=== PATIENT | female | born 1945 | race African-American/Black ===

== ENCOUNTER 2018-12-02 14:26 | Emergency (ER) | payer MEDICARE, OTHER ==
--- NOTE | 2018-12-02 16:30 | ED ---
General Adult HPI - General Source: patient, RN notes reviewed, old records reviewed Mode of arrival: EMS Limitations: no limitations <Lg Denis - Last Filed: 12/02/18 16:42> <Heidi Nunez - Last Filed: 12/02/18 20:06> - General Chief complaint: Psychiatric Symptoms Stated complaint: MENTAL HEALTH Time Seen by Provider: 12/02/18 14:28 - History of Present Illness Initial comments: 73-year-old female patient presents to ED for petition for psychiatric purposes, patient was at prison, they state that she'll not allow them to draw her blood, she will not seek medical care, patient has no current complaints at this time. Systemic: Pt denies fatigue, fever/chills, rash. Pt denies weakness, night s weats, weight loss. Neuro: Pt denies headache, visual disturbances, syncope or pre-syncope. HEENT: Pt denies ocular discharge or irritation, otalgia, rhinorrhea, pharyngitis or notable lymphadenopathy. Cardiopulmonary: Pt denies chest pain, SOB, heart palpitations, dyspnea on exertion. Abdominal/GI: Pt denies abdominal pain, n/v/d. : Pt denies dysuria, burning w/ urination, frequency/urgency. Denies new onset urinary or bowel incontinence. MSK: Pt denies myalgia, loss of strength or function in extremities. Neuro: Pt denies new onset weakness, paresthesias. (Lg Denis) - Related Data Home Medications Medication Instructions Recorded Confirmed Losartan Potassium 100 mg PO DAILY 12/02/18 12/02/18 Metoprolol Succinate [Toprol Xl] 50 mg PO DAILY 12/02/18 12/02/18 amLODIPine [Norvasc] 10 mg PO HS 12/02/18 12/02/18 hydrALAZINE HCL [Apresoline] 50 mg PO TID 12/02/18 12/02/18 risperiDONE [RisperDAL] 2 mg PO BID 12/02/18 12/02/18 Allergies Allergy/AdvReac Type Severity Reaction Status Date / Time No Known Allergies Allergy Unverified 12/02/18 14:58 Review of Systems ROS Other: All systems not noted in ROS Statement are negative. <Lg Denis - Last Filed: 12/02/18 16:42> ROS Other: All systems not noted in ROS Statement are negative. <Heidi Nunez - Last Filed: 12/02/18 20:06> ROS Statement: Those systems with pertinent positive or pertinent negative responses have been documented in the HPI. Past Medical History Past Medical History: Hypertension Additional Past Medical History / Comment(s): High cholesterol History of Any Multi-Drug Resistant Organisms: None Reported Past Surgical History: Appendectomy Past Psychological History: Schizophrenia Smoking Status: Current every day smoker Past Alcohol Use History: None Reported Past Drug Use History: None Reported <Lg Denis - Last Filed: 12/02/18 16:42> General Exam Limitations: no limitations <Lg Denis - Last Filed: 12/02/18 16:42> - General Exam Comments Initial Comments: Constitutional: NAD, AOX3, Pt has pleasant affect. HEENT: NC/AT, trachea midline, neck supple, no lymphadenopathy. Posterior pharynx non erythematous, without exudates. External ears appear normal, without discharge. Mucous membranes moist. Eyes PERRLA, EOM intact. There is no scleral icterus. No pallor noted. Cardiopulmonary: RRR, no murmurs, rubs or gallops, no JVD noted. Lungs CTAB in anterior and posterior joel. No peripheral edema. Abdominal exam: Abdomen soft and non-distended. Abdomen non-tender to palpation in all 4 quadrants. Bowel sounds active in LLQ. No hepatosplenomegaly. No ecchymosis Neuro: CN II-XII grossly intact. No nuchal rigidity. No raccon eyes, no camara sign, no hemotympanum. No cervical spinal tenderness. MSK: No posterior calf tenderness bilaterally, homans sign negative bilaterally. Posterior tibialis and radial pulse +2 bilaterally. Sensation intact in upper and lower extremities. Full active ROM in upper and lower extremities, 5/5 stregnth. (Lg Denis) Course Vital Signs 12/02/18 12/02/18 14:29 18:42 Temperature 99.0 F Pulse Rate 83 75 Respiratory 14 14 Rate Blood Pressure 166/72 131/62 O2 Sat by Pulse 94 L 95 Oximetry Medical Decision Making <Lg Denis - Last Filed: 12/02/18 16:42> - Medical Decision Making Pt signed out to attending physician Dr. Mota pending eps evaluation. (Lg Denis) - Lab Data Lab Results 12/02/18 Range/Units 16:50 Urine Opiates Screen Not Detected (NotDetected) Ur Oxycodone Screen Not Detected (NotDetected) Urine Methadone Screen Not Detected (NotDetected) Ur Propoxyphene Screen Not Detected (NotDetected) Ur Barbiturates Screen Not Detected (NotDetected) U Tricyclic Antidepress Not Detected (NotDetected) Ur Phencyclidine Scrn Not Detected (NotDetected) Ur Amphetamines Screen Not Detected (NotDetected) U Methamphetamines Scrn Not Detected (NotDetected) U Benzodiazepines Scrn Not Detected (NotDetected) Urine Cocaine Screen Not Detected (NotDetected) U Marijuana (THC) Screen Not Detected (NotDetected) Disposition <Lg Denis - Last Filed: 12/02/18 16:42> Is patient prescribed a controlled substance at d/c from ED?: No Time of Disposition: 20:06 <Heidi Nunez - Last Filed: 12/02/18 20:06> Clinical Impression: Schizophrenia Disposition: HOME SELF-CARE Condition: Stable Instructions (If sedation given, give patient instructions): Schizophrenia (ED) Additional Instructions: Please follow-up with your primary care physician. Return to the emergency room for any new or worsening symptoms Referrals: Zoran Bishop MD [Primary Care Provider] - 1-2 days
[2018-12-02 17:06] LABS: Amphetamine Screen,Urine Not Detected (NotDetected); Barbiturate Screen,Urine Not Detected (NotDetected); Benzodiazepines Screen,Urine Not Detected (NotDetected); Cocaine Screen,Urine Not Detected (NotDetected); Methadone Screen, Urine Not Detected (NotDetected); Opiate Screen,Urine Not Detected (NotDetected); Oxycodone Screen, Urine Not Detected (NotDetected); Phencyclidine Screen,Urine Not Detected (NotDetected); Tricyclic Antidepressant,Urine Not Detected (NotDetected); Urn Cannabinoid Scrn Not Detected (NotDetected)
[2018-12-02 20:54] VITALS: BP 131/76; PULSE 70; RESP 16; TEMP 98
== END 2018-12-02 21:19 | disposition home or self-care (01) ==
LOC: EC 14:26 → EEVIPCON 14:26 → EC 21:19
DX: F20.9 Schizophrenia, unspecified (principal); I10 Essential (primary) hypertension; F17.200 Nicotine dependence, unspecified, uncomplicated; Z79.899 Other long term (current) drug therapy
CPT/HCPCS: 80306; 82075; 99284

== ENCOUNTER 2018-12-12 19:56 | Emergency (ER) | payer MEDICARE, OTHER ==
[2018-12-12 20:17] VITALS: RESP 18
[2018-12-12 21:22] LABS: Appearance,Urine Clear (Clear); Bilirubin,Urine Negative (Negative); Blood,Urine Negative (Negative); Color,Urine Light Yellow; Glucose,Urine (UA) Negative (Negative); Ketones,Urine Negative (Negative); Leukocyte Esterase,Urine Negative (Negative); Nitrite,Urine Negative (Negative); PH, Urine 6.5 (5.0-8.0); Protein,Urine Negative (Negative); Specific Gravity,Urine 1.006 (1.001-1.035); Urobilinogen,Urine <2.0 mg/dL (<2.0)
[2018-12-12 21:33] LABS: Amphetamine Screen,Urine Not Detected (NotDetected); Barbiturate Screen,Urine Not Detected (NotDetected); Benzodiazepines Screen,Urine Not Detected (NotDetected); Cocaine Screen,Urine Not Detected (NotDetected); Methadone Screen, Urine Not Detected (NotDetected); Opiate Screen,Urine Not Detected (NotDetected); Oxycodone Screen, Urine Not Detected (NotDetected); Phencyclidine Screen,Urine Not Detected (NotDetected); Tricyclic Antidepressant,Urine Not Detected (NotDetected); Urn Cannabinoid Scrn Not Detected (NotDetected)
--- NOTE | 2018-12-12 21:45 | XR ---
EXAMINATION TYPE: XR chest 2V DATE OF EXAM: 12/12/2018 COMPARISON: NONE HISTORY: Altered mental status TECHNIQUE: Frontal and lateral views of the chest are obtained. FINDINGS: Cardiac silhouette is normal in size. Atherosclerotic vascular calcifications. Airspace consolidation silhouettes the right heart border. Streak-like right upper lung opacity, likely on the basis of sub segmental atelectasis. Blunting of the costophrenic angles on the lateral view may relate to small pl eural effusions versus atelectasis. Mild degenerative changes of the thoracic spine. IMPRESSION: Right middle lobe airspace consolidation, correlate for clinical symptoms of pneumonia.
[2018-12-12] MEDS ORDERED: cefTRIAXone 1,000 MG VIAL (IM USE) IM STA (22:04)
--- NOTE | 2018-12-12 22:11 | ED ---
General Adult HPI - General Source: patient, EMS Mode of arrival: EMS Limitations: no limitations <Akbar Schilling - Last Filed: 12/12/18 23:13> <Shayan Osman - Last Filed: 12/12/18 23:43> - General Chief complaint: Psychiatric Symptoms Stated complaint: mental health Time Seen by Provider: 12/12/18 20:36 - History of Present Illness Initial comments: Patient is a 73-year-old female with history of schizophrenia blindness is presenting to emergency Department via petition. Patient lives in an assisted living facility. Caregiver petition the patient due to lack of self-care and avoidance of laboratory workup. Patient denies any shortness of breath, chest pain, chest tightness, nausea vomiting diarrhea. Patient denies abdominal back pain. Patient reports a cough for the past few days without improvement. Patient is a smoker but denies asthma. Patient denies taking medication to alleviate the symptoms. Patient denies any changes in sputum production. Patient has no further complaints. (Akbar Schilling) - Related Data Home Medications Medication Instructions Recorded Confirmed Losartan Potassium 100 mg PO DAILY 12/02/18 12/12/18 Metoprolol Succinate [Toprol Xl] 50 mg PO DAILY 12/02/18 12/12/18 amLODIPine [Norvasc] 10 mg PO HS 12/02/18 12/12/18 hydrALAZINE HCL [Apresoline] 50 mg PO Q8H 12/02/18 12/12/18 risperiDONE [RisperDAL] 2 mg PO BID 12/02/18 12/12/18 Acetaminophen Tab [Tylenol Tab] 325 mg PO Q6H PRN 12/12/18 12/12/18 Albuterol Inhaler [Ventolin Hfa 2 puff INHALATION RT-Q6H PRN 12/12/18 12/12/18 Inhaler] Ibuprofen [Motrin Ib] 200 mg PO Q6H PRN 12/12/18 12/12/18 Loperamide HCl [Imodium A-D] 2 - 4 mg PO QID PRN 12/12/18 12/12/18 Magnesium Hydroxide [Milk of 2,400 mg PO DAILY PRN 12/12/18 12/12/18 Magnesia] Allergies Allergy/AdvReac Type Severity Reaction Status Date / Time No Known Allergies Allergy Verified 12/12/18 20:23 Review of Systems ROS Other: All systems not noted in ROS Statement are negative. <Akbar Schilling - Last Filed: 12/12/18 23:13> ROS Other: All systems not noted in ROS Statement are negative. <Shayan Osman - Last Filed: 12/12/18 23:43> ROS Statement: Those systems with pertinent positive or pertinent negative responses have been documented in the HPI. Past Medical History Past Medical History: Hypertension Additional Past Medical History / Comment(s): High cholesterol History of Any Multi-Drug Resistant Organisms: None Reported Past Surgical History: Appendectomy Past Psychological History: Schizophrenia Smoking Status: Current every day smoker Past Alcohol Use History: None Reported Past Drug Use History: None Reported <Akbar Schilling - Last Filed: 12/12/18 23:13> General Exam Limitations: no limitations General appearance: alert, in no apparent distress Head exam: Present: atraumatic, normocephalic, normal inspection Eye exam: Present: normal appearance, PERRL, EOMI Pupils: Present: normal accommodation ENT exam: Present: normal exam, normal oropharynx, mucous membranes moist, TM's normal bilaterally, normal external ear exam Neck exam: Present: normal inspection, full ROM Respiratory exam: Present: normal lung sounds bilaterally, rales (Bilateral lung bases) Cardiovascular Exam: Present: regular rate, normal rhythm, normal heart sounds Extremities exam: Present: normal inspection, full ROM Back exam: Present: normal inspection, full ROM. Absent: CVA tenderness (R), CVA tenderness (L) Neurological exam: Present: alert, oriented X3 Psychiatric exam: Present: normal affect, normal mood Skin exam: Present: warm, intact, normal color <Akbar Schilling - Last Filed: 12/12/18 23:13> Course <Shayan Osman - Last Filed: 12/12/18 23:43> Vital Signs 12/12/18 20:15 Temperature 97.9 F Pulse Rate 72 Respiratory 18 Rate Blood Pressure 140/78 O2 Sat by Pulse 92 L Oximetry - Reevaluation(s) Reevaluation #1: 12/12/18 23:42 Patient is thus far refusing lab draws/medications x-ray does show evidence of a possible right middle lobe consolidation. No reports of fevers chills cough or other symptoms she is a smoker. She is currently pending a psychiatric evaluation in the a.m. She is currently resting comfortably. (Shayan Osman) Medical Decision Making <Akbar Schilling - Last Filed: 12/12/18 23:13> - Medical Decision Making Patient is 71-year-old female with history of schizophrenia and blindness is presenting to emergency Department via petition. Patient refuses lab blood draws. Patient did give a urine sample which is unremarkable. Urine toxicology is also unremarkable. Chest x-ray was obtained due to crackles noted on physical examination. Chest x-ray reveals a right middle lobe airspace consolidation with bilateral costovertebral angle blunting. I suspect the patient to be developing an early pneumonia. Patient is afebrile. Patient is refusing any medication at this moment. Patient denies chest pain, chest tightness or shortness of breath. Patient will be admitted for further psychiatric evaluation. Patient will be reevaluated in the morning by psychiatrist. Case discussed with Dr. Osman. (Akbar Schilling) - Lab Data Lab Results 12/12/18 Range/Units 20:20 Urine Color Light Yellow Urine Appearance Clear (Clear) Urine pH 6.5 (5.0-8.0) Ur Specific [place] 1.006 (1.001-1.035) Urine Protein Negative (Negative) Urine Glucose (UA) Negative (Negative) Urine Ketones Negative (Negative) Urine Blood Negative (Negative) Urine Nitrite Negative (Negative) Urine Bilirubin Negative (Negative) Urine Urobilinogen <2.0 (<2.0) mg/dL Ur Leukocyte Esterase Negative (Negative) Urine Opiates Screen Not Detected (NotDetected) Ur Oxycodone Screen Not Detected (NotDetected) Urine Methadone Screen Not Detected (NotDetected) Ur Propoxyphene Screen Not Detected (NotDetected) Ur Barbiturates Screen Not Detected (NotDetected) U Tricyclic Antidepress Not Detected (NotDetected) Ur Phencyclidine Scrn Not Detected (NotDetected) Ur Amphetamines Screen Not Detected (NotDetected) U Methamphetamines Scrn Not Detected (NotDetected) U Benzodiazepines Scrn Not Detected (NotDetected) Urine Cocaine Screen Not Detected (NotDetected) U Marijuana (THC) Screen Not Detected (NotDetected) Disposition Is patient prescribed a controlled substance at d/c from ED?: No Time of Disposition: 23:12 <Akbar Schilling - Last Filed: 12/12/18 23:13> <Shayan Osman - Last Filed: 12/12/18 23:43> Clinical Impression: Psychiatric disorder Disposition: ADMITTED IP TO THIS HOSP Condition: Stable Instructions (If sedation given, give patient instructions): Schizophrenia (ED) Additional Instructions: Patient will be admitted for further psychiatric evaluation. Referrals: Deirdre Miranda MD [Primary Care Provider] - 1-2 days
[2018-12-13 06:18] VITALS: BP 145/70; PULSE 87; TEMP 98.1
[2018-12-13 11:53] LABS: Anisocytosis Slight; Basophils # (A) 0.1 k/uL (0-0.2); Basophils % (A) 1 %; Eosinophils # (A) 0.3 k/uL (0-0.7); Eosinophils % (A) 4 %; HCT 38.7 % (34.0-46.0); HGB 12.8 gm/dL (11.4-16.0); Lymphocytes # (A) 1.3 k/uL (1.0-4.8); Lymphocytes % (A) 16 %; MCH 33.8 pg (25.0-35.0); MCHC 33.2 g/dL (31.0-37.0); MCV 101.6 fL (80.0-100.0); Macrocytosis Slight; Mean Platelet Volume 8.5; Monocytes # (A) 0.4 k/uL (0-1.0); Monocytes % (A) 5 %; Neutrophils % (A) 73 %; Platelet Count 240 k/uL (150-450); WBC 8.2 k/uL (3.8-10.6)
[2018-12-13 12:07] LABS: Calcium 9.6 mg/dL (8.4-10.2); Total Bilirubin 0.8 mg/dL (0.2-1.3); Total Protein 8.5 g/dL (6.3-8.2)
--- NOTE | 2018-12-13 12:23 | ED ---
Medical Decision Making - Medical Decision Making Patient was seen by mental health services and recommends discharge. Psychiatrist did see patient. They were on concern whether or not labs were drawn. Labs were drawn because patient does not have recent blood work done and was requested through living facility. Patient was compliant with lab draw and agrees to be compliant in the future. Chest x-ray had questionable infiltrate and patient will be covered with antibiotics. Patient is agreeable to take antibiotics. Patient reevaluated by myself and is resting comfortably in bed. Patient is updated. - Lab Data Result diagrams: 12/13/18 11:35 12/13/18 11:35 Lab Results 12/12/18 12/13/18 12/13/18 Range/Units 20:20 11:35 11:35 WBC 8.2 (3.8-10.6) k/uL RBC 3.80 (3.80-5.40) m/uL Hgb 12.8 (11.4-16.0) gm/dL Hct 38.7 (34.0-46.0) % MCV 101.6 H (80.0-100.0) fL MCH 33.8 (25.0-35.0) pg MCHC 33.2 (31.0-37.0) g/dL RDW 17.0 H (11.5-15.5) % Plt Count 240 (150-450) k/uL Neutrophils % 73 % Lymphocytes % 16 % Monocytes % 5 % Eosinophils % 4 % Basophils % 1 % Neutrophils # 6.0 (1.3-7.7) k/uL Lymphocytes # 1.3 (1.0-4.8) k/uL Monocytes # 0.4 (0-1.0) k/uL Eosinophils # 0.3 (0-0.7) k/uL Basophils # 0.1 (0-0.2) k/uL Anisocytosis Slight Macrocytosis Slight Sodium 143 (137-145) mmol/L Potassium 4.0 (3.5-5.1) mmol/L Chloride 110 H (98-107) mmol/L Carbon Dioxide 25 (22-30) mmol/L Anion Gap 8 mmol/L BUN 13 (7-17) mg/dL Creatinine 0.77 (0.52-1.04) mg/dL Est GFR (CKD-EPI)AfAm 89 (>60 ml/min/1.73 sqM) Est GFR (CKD-EPI)NonAf 77 (>60 ml/min/1.73 sqM) Glucose 98 (74-99) mg/dL Calcium 9.6 (8.4-10.2) mg/dL Total Bilirubin 0.8 (0.2-1.3) mg/dL AST 29 (14-36) U/L ALT 17 (9-52) U/L Alkaline Phosphatase 64 (38-126) U/L Total Protein 8.5 H (6.3-8.2) g/dL Albumin 4.0 (3.5-5.0) g/dL Urine Color Light Yellow Urine Appearance Clear (Clear) Urine pH 6.5 (5.0-8.0) Ur Specific [place] 1.006 (1.001-1.035) Urine Protein Negative (Negative) Urine Glucose (UA) Negative (Negative) Urine Ketones Negative (Negative) Urine Blood Negative (Negative) Urine Nitrite Negative (Negative) Urine Bilirubin Negative (Negative) Urine Urobilinogen <2.0 (<2.0) mg/dL Ur Leukocyte Esterase Negative (Negative) Urine Opiates Screen Not Detected (NotDetected) Ur Oxycodone Screen Not Detected (NotDetected) Urine Methadone Screen Not Detected (NotDetected) Ur Propoxyphene Screen Not Detected (NotDetected) Ur Barbiturates Screen Not Detected (NotDetected) U Tricyclic Antidepress Not Detected (NotDetected) Ur Phencyclidine Scrn Not Detected (NotDetected) Ur Amphetamines Screen Not Detected (NotDetected) U Methamphetamines Scrn Not Detected (NotDetected) U Benzodiazepines Scrn Not Detected (NotDetected) Urine Cocaine Screen Not Detected (NotDetected) U Marijuana (THC) Screen Not Detected (NotDetected) Disposition Clinical Impression: Psychiatric disorder Disposition: HOME SELF-CARE Condition: Stable Instructions (If sedation given, give patient instructions): Schizophrenia (ED) Additional Instructions: Please follow-up with primary care physician in the next few days for recheck. Have primary care physician review results and x-ray results from today. Please do blood draws and take medication as directed. Return for cough or fever, difficulty breathing or other concerns. Follow up with psychiatry as directed. Prescription and has been sent for antibiotics at [facility]. Prescriptions: Azithromycin [Zithromax Z-pack] 250 mg PO DIRECTED #6 tab Is patient prescribed a controlled substance at d/c from ED?: No Referrals: Deirdre Miranda MD [Primary Care Provider] - 1-2 days
== END 2018-12-13 15:29 | disposition other institution (70) ==
LOC: EC 19:56 → SUPCPDRO 19:56 → EC 12-13 15:29
DX: F20.9 Schizophrenia, unspecified (principal); R91.8 Other nonspecific abnormal finding of lung field; R09.89 Other specified symptoms and signs involving the circulatory and respiratory systems; R05 Cough; I10 Essential (primary) hypertension; H54.7 Unspecified visual loss; F17.200 Nicotine dependence, unspecified, uncomplicated; Z79.899 Other long term (current) drug therapy; Z53.20 Procedure and treatment not carried out because of patient's decision for unspecified reasons
CPT/HCPCS: 36415; 71046; 80053; 80306; 81003; 85025; 87040; 99285